=== PATIENT | female | born 1965 | race Two or more races ===

== ENCOUNTER 2019-09-24 11:07 | Emergency (ER) | payer OTHER ==
[~2019-09-24] VITALS: Ht 167.6 cm; Wt 95.3 kg
[2019-09-24] MEDS ORDERED: COZAAR50 MG PO (11:40)
[2019-09-24] MEDS ORDERED: TOPROL XL25 M1 PO (11:40)
== END 2019-09-24 15:36 | disposition home or self-care (01) ==
LOC: ER 11:07
DX: R05 Cough (principal)